=== PATIENT | male | born 1980 | race Two or more races ===

== ENCOUNTER 2020-11-11 10:35 | Emergency (ER) | payer OTHER ==
[~2020-11-11] VITALS: Ht 162.6 cm; Wt 75.0 kg
[2020-11-11 10:43] VITALS: Ht 162.6 cm; Wt 75.0 kg
[2020-11-11 11:01] LABS: EOSINOPHILS 0.1 % (0-7); RDW 12.7 % (11.5-14.5)
[2020-11-11 11:07] LABS: BASOPHILS 0.7 % (0-2); HEMATOCRIT 44.7 % (42.0-54.0); HEMOGLOBIN 14.9 g/dL (13.5-17.5); MCH 29.4 pg (26.0-34.0); MCHC 33.4 g/dL (31.0-37.0); MEAN PLATELET VOLUME 9.1 fL (7.4-10.4); MONOCYTES 6.2 % (2-11); PLATELET COUNT 279 10x3/uL (130-400); RBC 5.07 10x6/uL (4.20-6.10); WBC 15.8 10x3/uL (4.8-10.8)
[2020-11-11 11:15] LABS: CALC OSMOLALITY 278 mosm/kg (275-300); CALCIUM 9.6 mg/dL (8.5-10.1); CARBON DIOXIDE 24.9 mmol/L (21.0-32.0); CHLORIDE - SERUM 103 mmol/L (98-107); CREATININE - SERUM 1.1 mg/dL (0.6-1.3); GLUCOSE 119 mg/dL (74-106); SODIUM 140 mmol/L (136-145); UREA NITROGEN 10 mg/dL (7-18); eGFR NON AFRICAN AMERICAN 78 mL/min (90-120)
[2020-11-11 11:21] LABS: ALBUMIN 4.3 g/dL (3.4-5.0); ALKALINE PHOSPHATASE 107 U/L (30-120); ALT (SGPT) 31 U/L (10-68); BILIRUBIN - TOTAL 0.73 mg/dL (0.2-1.3); LIPASE 60 U/L (73-393); PROTEIN - SERUM 7.7 g/dL (6.4-8.2)
[2020-11-11] MEDS ORDERED: FLOMAX0.4 MG PO (13:07)
[2020-11-11] MEDS ORDERED: HYDROCODONE-AC1 EAC2 PO (13:07)
[2020-11-11 13:13] LABS: BILIRUBIN NEGATIVE (NEGATIVE); KETONE SMALL mg/dL (NEGATIVE); NITRITE NEGATIVE (NEGATIVE); UROBILINOGEN NORMAL mg/dL (< 2); WHITE CELLS - URINE RARE HPF (0-1)
[2020-11-11 13:14] LABS: BACTERIA FEW HPF (NONE SEEN); SQUAMOUS EPITHELIAL RARE HPF (0-4)
[2020-11-11 13:30] VITALS: BP 133/75
== END 2020-11-11 13:30 | disposition home or self-care (01) ==
LOC: D.ER 10:35
PROVIDERS: Family Medicine
DX: N20.1 Calculus of ureter (principal); R10.9 Unspecified abdominal pain